=== PATIENT | male | born 1930 | race Caucasian/White ===

== ENCOUNTER 2021-06-30 09:13 | Inpatient (IN) | payer OTHER ==
[~2021-06-30] VITALS: Ht 170.2 cm; Wt 86.2 kg
[2021-06-30 09:52] LABS: HEMOGLOBIN 13.2 gm/dl (14.0-17.5); RED BLOOD COUNT 4.42 M/UL (4.20-5.50)
[2021-06-30 10:35] LABS: BUN/CREATININE RATIO 12 (0-10)
[2021-06-30 12:16] LABS: BORDETELLA PARAPERTUSSIS Not Detected (Not Detectd); BORDETELLA PERTUSSIS Not Detected (Not Detectd); CHLAMYDIA PNEUMONIAE Not Detected (Not Detectd); CORONAVIRUS HKU1 Not Detected (Not Detectd); CORONAVIRUS NL63 Not Detected (Not Detectd); CORONAVIRUS OC43 Not Detected (Not Detectd); CORONOAVIRUS 229E Not Detected (Not Detectd); HUMAN METAPNEUMOVIRUS Not Detected (Not Detectd); HUMAN RHINOVIRUS/ENTEROVIRUS Not Detected (Not Detectd); INFLUENZA A Not Detected (Not Detectd); INFLUENZA B Not Detected (Not Detectd); MYCOPLASMA PNEUMONIAE Not Detected (Not Detectd); PARAINFLUENZA VIRUS 1 Not Detected (Not Detectd); PARAINFLUENZA VIRUS 2 Not Detected (Not Detectd); PARAINFLUENZA VIRUS 3 Not Detected (Not Detectd); PARAINFLUENZA VIRUS 4 Not Detected (Not Detectd); RESPIRATORY SYNCYTIAL VIRUS Not Detected (Not Detectd)
[2021-06-30 13:09] LABS: SARS-CoV-2 NOT DETECTED (Not Detectd)
[2021-06-30 15:27] LABS: HEMOGLOBIN 12.6 gm/dl (14.0-17.5); RED BLOOD COUNT 4.24 M/UL (4.20-5.50); WHITE BLOOD COUNT 1.7 K/UL (4.5-11.0)
[2021-06-30 16:02] LABS: BUN/CREATININE RATIO 14 (0-10)
[2021-06-30 18:11] LABS: ADENOVIRUS F 40/41 Not Detected (Negative); ASTROVIRUS Not Detected (Negative); CAMPYLOBACTER Not Detected (Negative); CRYPTOSPORIDIUM Not Detected (Negative); E.COLI 0157 Not Detected (Negative); ENTAMOEBA HISTOLYTICA Not Detected (Negative); ENTEROAGGREGATIVE E.COLI (EAEC Not Detected (Negative); ENTEROTOXIGENIC E.COLI (ETEC) Not Detected (Negative); GIARDIA LAMBLIA Not Detected (Negative); NOROVIRUS GI/GII Not Detected (Negative); PLESIOMONAS SHIGELLOIDES Not Detected (Negative); ROTOVIRUS A Not Detected (Negative); SALMONELLA Not Detected (Negative); SAPOVIRUS Not Detected (Negative); SHIG/ENTEROINVAS.ECOLI (EIEC) Not Detected (Negative); SHIGA-LIK TOX.PRO.E.COLI (STEC Not Detected (Negative); VIBRIO Not Detected (Negative); VIBRIO CHOLERAE Not Detected (Negative); YERSINIA ENTEROCOLITICA Not Detected (Negative)
[2021-06-30 19:56] LABS: HEMOGLOBIN 13.5 gm/dl (14.0-17.5); RED BLOOD COUNT 4.55 M/UL (4.20-5.50)
[2021-06-30 20:32] LABS: WHITE BLOOD COUNT 2.2 K/UL (4.5-11.0)
[2021-06-30] MEDS ORDERED: MELATONIN3 MG PO (23:46)
[2021-06-30] MEDS ORDERED: FLOMAX 0.4 MG0.4 MG PO (23:47)
[2021-06-30] MEDS ORDERED: SIMVASTATIN20 MG PO (23:48)
[2021-06-30] MEDS ORDERED: SYNTHROID25 MCG PO (23:48)
[2021-06-30] MEDS ORDERED: AMLODIPINE BESYL5 MG PO (23:49)
[2021-07-01 06:06] LABS: HEMOGLOBIN 13.6 gm/dl (14.0-17.5); RED BLOOD COUNT 4.59 M/UL (4.20-5.50); WHITE BLOOD COUNT 2.6 K/UL (4.5-11.0)
[2021-07-01 06:35] LABS: BUN/CREATININE RATIO 14 (0-10)
[2021-07-01 08:01] LABS: CLOSTRIDIUM DIFFICILE TOX A/B DETECTED (Negative); ENTEROPATHOGENIC E.COLI (EPEC) DETECTED (Negative)
[2021-07-01 12:58] LABS: HEMOGLOBIN 14.1 gm/dl (14.0-17.5); RED BLOOD COUNT 4.73 M/UL (4.20-5.50)
[2021-07-01 13:00] LABS: WHITE BLOOD COUNT 3.4 K/UL (4.5-11.0)
[2021-07-02 06:47] LABS: WHITE BLOOD COUNT 2.9 K/UL (4.5-11.0)
[2021-07-02 06:54] LABS: RED BLOOD COUNT 4.05 M/UL (4.20-5.50)
[2021-07-02 06:55] LABS: HEMOGLOBIN 11.9 gm/dl (14.0-17.5)
[2021-07-02 07:27] LABS: BUN/CREATININE RATIO 9 (0-10)
[2021-07-03 08:00] LABS: HEMOGLOBIN 12.5 gm/dl (14.0-17.5); RED BLOOD COUNT 4.25 M/UL (4.20-5.50)
[2021-07-03 08:06] LABS: WHITE BLOOD COUNT 4.3 K/UL (4.5-11.0)
[2021-07-03 08:35] LABS: BUN/CREATININE RATIO 7 (0-10)
[2021-07-03 15:10] LABS: HEMATOCRIT 41.2 % (37.5-51.0)
[2021-07-04] MEDS ORDERED: VANCOMYCIN HCL125 MG PO (09:16)
[2021-07-04] MEDS ORDERED: LEVOFLOXACIN500 MG PO (09:16)
[2021-07-04 10:48] LABS: HEMOGLOBIN 12.4 gm/dl (14.0-17.5); RED BLOOD COUNT 4.24 M/UL (4.20-5.50); WHITE BLOOD COUNT 4.8 K/UL (4.5-11.0)
[2021-07-05 07:45] LABS: BUN/CREATININE RATIO 8 (0-10)
[2021-07-05] MEDS ORDERED: LOPRESSOR 25 MG25 MG PO (14:15)
== END 2021-07-05 18:50 | disposition home or self-care (01) | DRG 372 ==
LOC: ER1 09:13 → CDU 14:21 → M/S 14:21
PROVIDERS: Physician Assistant; Physician Assistant Medical; Registered Nurse; ADMIT Internal Medicine
DX: A04.72 Enterocolitis due to Clostridium difficile, not specified as recurrent (principal); N17.9 Acute kidney failure, unspecified; E87.1 Hypo-osmolality and hyponatremia; D61.818 Other pancytopenia; E87.6 Hypokalemia; B96.20 Unspecified Escherichia coli [E. coli] as the cause of diseases classified elsewhere; I49.3 Ventricular premature depolarization; Z20.822 Contact with and (suspected) exposure to COVID-19; I45.4 Nonspecific intraventricular block; I10 Essential (primary) hypertension; E03.9 Hypothyroidism, unspecified; E83.42 Hypomagnesemia; D70.9 Neutropenia, unspecified; E78.5 Hyperlipidemia, unspecified; Z83.3 Family history of diabetes mellitus; Z82.49 Family history of ischemic heart disease and other diseases of the circulatory system; Z79.899 Other long term (current) drug therapy; Z23 Encounter for immunization
CPT/HCPCS: 36415; 70450; 71045; 71275; 74160; 80048; 80053; 81001; 82550; 82553; 82607; 82728; 82747; 83540; 83550; 83605; 83615; 83735; 83874; 83921; 84132; 84439; 84443; 84484; 85025; 85379; 85384; 85610; 85730; 86850; 86900; 86901; 87040; 87086; 87449; 87507; 87633; 93005; 97162; 97165; 99285; J1956; J7030; J7070; J7120; Q9967; U0002

== ENCOUNTER → 2021-09-20 | Outpatient (CLI) | payer MEDICARE ==
[~2021-09-20] MED LIST: AMLODIPINE BESYL5 MG PO; FLOMAX 0.4 MG0.4 MG PO; LEVOFLOXACIN500 MG PO; LOPRESSOR 25 MG25 MG PO; MELATONIN3 MG PO; SIMVASTATIN20 MG PO; SYNTHROID25 MCG PO; VANCOMYCIN HCL125 MG PO
== END ==
LOC: LBRF 11:21 → HEART CORB 11:21
DX: I49.3 Ventricular premature depolarization (principal); R94.31 Abnormal electrocardiogram [ECG] [EKG]; I20.8 Other forms of angina pectoris; R06.02 Shortness of breath; I10 Essential (primary) hypertension; E78.5 Hyperlipidemia, unspecified

== ENCOUNTER → 2021-10-18 | Outpatient (CLI) | payer MEDICARE, OTHER | LOC: HEART CORB 13:57 | DX: I49.3 Ventricular premature depolarization (principal); I20.8 Other forms of angina pectoris; R94.31 Abnormal electrocardiogram [ECG] [EKG]; R06.02 Shortness of breath | CPT/HCPCS: 78452; A9502; J2785 ==

== ENCOUNTER → 2021-11-08 | Outpatient (CLI) | payer MEDICARE | LOC: HEART CORB 10:00 | DX: I25.5 Ischemic cardiomyopathy (principal); I08.3 Combined rheumatic disorders of mitral, aortic and tricuspid valves | CPT/HCPCS: 93306 ==